=== PATIENT | female | born 1980 | race American Indian/Alaskan Native ===

== ENCOUNTER 2018-04-27 10:53 | Emergency (ER) | payer MEDICAID ==
[2018-04-27 11:20] VITALS: TEMP 98.7; O2SAT 100; BMI 38.2
--- NOTE | 2018-04-27 11:29 | ED PDOC ---
Arrival/HPI <Marissa Candelaria - Last Filed: 04/27/18 13:52> - General Historian: Patient <Marisa Martines - Last Filed: 04/27/18 18:02> - General Chief Complaint: Dizziness/Lightheaded Time Seen by Provider: 04/27/18 11:00 - History of Present Illness Narrative History of Present Illness (Text): 04/27/18 11:26 Patient is a 37 year old female with past medical history of rheumatoid arthritis, depression/anxiety, fibroids presents to the ED for dizziness that started this morning. Symptoms started at 10:30am and she is still dizzy. Patient states that she started her period on 04/23 and it has been irregular. She states that she passed a "big" blood clot on the first day the bleeding slowed down then she started bleeding again. Currently she is spotting. Reports having abdominal cramping x 1 week. Rates the pain 5-6/10 on pain scale. Has tried motrin for the pain with no relief. Admits to feeling nauseous but no vomiting. (Marisa Martines) Past Medical History <Marissa Candelaria - Last Filed: 04/27/18 13:52> - Provider Review Nursing Documentation Reviewed: Yes - Past History Past History: No Previous - Infectious Disease Hx of Infectious Diseases: None - Reproductive Menopause: No - Cardiac Hx Cardiac Disorders: No - Pulmonary Hx Respiratory Disorders: No - Neurological Hx Neurological Disorder: Yes Hx Dizziness: Yes - HEENT Hx HEENT Disorder: No - Renal Hx Renal Disorder: No - Endocrine/Metabolic Hx Endocrine Disorders: No - Hematological/Oncological Hx Blood Disorders: No - Integumentary Hx Dermatological Disorder: No - Musculoskeletal/Rheumatological Hx Musculoskeletal Disorders: Yes Hx Rheumatoid Arthritis: Yes - Gastrointestinal Hx Gastrointestinal Disorders: No - Genitourinary/Gynecological Hx Genitourinary Disorders: No - Psychiatric Hx Psychophysiologic Disorder: Yes Hx Anxiety: Yes Hx Depression: Yes Hx Substance Use: No - Surgical History Hx Section: Yes (x2) - Anesthesia Hx Anesthesia: Yes <Brooke Martinesm - Last Filed: 04/27/18 18:02> - Patient History Narrative Patient History: Rheumatoid arthritis, depression/anxiety (Marisa Martines) Family/Social History - Physician Review Nursing Documentation Reviewed: Yes Family/Social History: Diabetes Smoking Status: Heavy Smoker > 10 Cigarettes Daily Hx Alcohol Use: Yes Frequency of alcohol use: Socially Hx Substance Use: No <Marisa Martines - Last Filed: 04/27/18 18:02> Allergies/Home Meds <Marissa Candelaria - Last Filed: 04/27/18 13:52> <Marisa Martines - Last Filed: 04/27/18 18:02> Allergies/Adverse Reactions: Allergies amoxicillin Adverse Reaction (Verified 04/27/18 11:19) RASH Home Medications: Home Meds Medication Instructions Recorded Confirmed ALPRAZolam [Xanax] 0.25 mg PO Q6 PRN 04/27/18 04/27/18 Sertraline [Zoloft] 100 mg PO DAILY 04/27/18 04/27/18 Review of Systems - Review of Systems Constitutional: Fatigue, Weight Change. absent: Fevers, Night Sweats Eyes: Vision Changes ENT: absent: Hearing Changes Respiratory: absent: SOB, Cough, Wheezing Cardiovascular: absent: Chest Pain, Palpitations Gastrointestinal: Abdominal Pain, Nausea. absent: Diarrhea, Vomiting Genitourinary Female: absent: Dysuria, Frequency, Hematuria Neurological: Dizziness. absent: Headache <Marisa Martines - Last Filed: 04/27/18 18:02> Physical Exam Vital Signs Reviewed: Yes Temperature: Afebrile Blood Pressure: Normal Pulse: Regular Respiratory Rate: Normal Appearance: Positive for: Well-Appearing, Non-Toxic Pain Distress: Mild Mental Status: Positive for: Alert and Oriented X 3 - Systems Exam Head: Present: Atraumatic, Normocephalic Pupils: Present: PERRL Extroacular Muscles: Present: EOMI Conjunctiva: Present: Normal Mouth: Present: Moist Mucous Membranes Respiratory/Chest: Present: Clear to Auscultation, Good Air Exchange Cardiovascular: Present: Regular Rate and Rhythm, Normal S1, S2 Abdomen: Present: Tenderness (Suprapubic), Normal Bowel Sounds. No: Distention , Peritoneal Signs Upper Extremity: Present: Normal Inspection Lower Extremity: Present: Normal Inspection Neurological: Present: CN II-XII Intact, Speech Normal Skin: Present: Warm, Dry, Normal Color Psychiatric: Present: Alert, Oriented x 3 <Marisa Martines - Last Filed: 04/27/18 18:02> Vital Signs Temp Pulse Resp BP Pulse Ox 04/27/18 14:20 77 18 119/70 100 04/27/18 13:20 123/74 04/27/18 11:11 98.7 F 70 17 100 Medical Decision Making <Marissa Candelaria - Last Filed: 04/27/18 13:52> Re-evaluation Time: 12:57 Reassessment Condition: Re-examined, Improving,but remains with symptoms - Lab Interpretations I have reviewed the lab results: Yes - EKG Interpretation Interpreted by ED Physician: Yes Type: 12 lead EKG <Marisa Martines - Last Filed: 04/27/18 18:02> ED Course and Treatment: 04/27/18 In agreement with resident note, which includes further HPI details. Patient was seen and evaluated with resident, came up with plan and treatment together. (Marissa Candelaria) 04/27/18 12:57 --Labs (CBC,CMP, UA) --EKG --Toradol 30mg IVP x 1 (Marisa Martines) - Lab Interpretations Lab Results: 04/27/18 12:00 04/27/18 12:00 Lab Results 04/27/18 12:00: Sodium 140, Potassium 3.9, Chloride 102, Carbon Dioxide 25, Anion Gap 17, BUN 13, Creatinine 0.8, Est GFR ( Amer) > 60, Est GFR (Non- Af Amer) > 60, Random Glucose 93, Calcium 9.7, Total Bilirubin 0.4, AST 22, ALT 23, Alkaline Phosphatase 68, Total Protein 8.0, Albumin 4.7, Globulin 3.3, Albumin/Globulin Ratio 1.4 04/27/18 12:00: WBC 9.6, RBC 4.10, Hgb 12.9, Hct 37.7, MCV 92.0, MCH 31.5, MCHC 34.2, RDW 12.1, Plt Count 312, MPV 9.2, Gran % 68.3 H, Lymph % (Auto) 23.7, [place] % (Auto) 7.1 H, Eos % (Auto) 0.6 L, Baso % (Auto) 0.3, Gran # 6.52 H, Lymph # (Auto) 2.3, [place] # (Auto) 0.7 H, Eos # (Auto) 0.1, Baso # (Auto) 0.03 04/27/18 12:00: Urine Color Yellow, Urine Appearance Clear, Urine pH 6.0, Ur Specific [place] 1.020, Urine Protein Negative, Urine Glucose (UA) Negative, Urine Ketones Negative, Urine Blood Large H, Urine Nitrate Negative, Urine Bilirubin Negative, Urine Urobilinogen 0.2, Ur Leukocyte Esterase Negative, Urine RBC 20 - 25, Urine WBC 0 - 2, Ur Epithelial Cells 6 - 8, Urine Bacteria Mod - EKG Interpretation EKG Interpretation (Text): 04/27/18 13:00 Sinus bradycardia 59 bpm, no ST-T wave changes (Marisa Martines) - Medication Orders Current Medication Orders: Discontinued Medications Sodium Chloride (Sodium Chloride 0.9%) 500 mls @ 999 mls/hr IV .Q31M STA Stop: 04/27/18 13:35 Last Admin: 04/27/18 13:10 Dose: 999 mls/hr eMAR Start Stop Document 04/27/18 13:10 EQ (Rec: 04/27/18 13:11 EQ [id number]) Intravenous Solution Start Date 04/27/18 Start Time 13:11 Ketorolac Tromethamine (Toradol) 30 mg IVP STAT STA Stop: 04/27/18 11:30 Last Admin: 04/27/18 11:45 Dose: 30 mg MAR Pain Assessment Document 04/27/18 11:45 EQ (Rec: 04/27/18 11:45 EQ [id number]) Pain Reassessment Is this a pain reassessment? No Sleep Is patient sleeping during reassessment? No Presence of Pain Presence of Pain Yes IVP Administration Document 04/27/18 11:45 EQ (Rec: 04/27/18 11:45 EQ [id number]) Charges for Administration # of IVP Administrations 1 - PA / [employer] TECH / Resident Statement MD/DO has reviewed & agrees with the documentation as recorded. MD/DO has examined the patient and agrees with the treatment plan. - Scribe Statement The provider has reviewed the documentation as recorded by the Scribe <Marissa Candelaria - Last Filed: 04/27/18 13:52> <Marisa Martines - Last Filed: 04/27/18 18:02> - Scribe Statement Andressa Reyes Provider Scribe Attestation: All medical record entries made by the Scribe were at my direction and personally dictated by me. I have reviewed the chart and agree that the record accurately reflects my personal performance of the history, physical exam, medical decision making, and the department course for this patient. I have also personally directed, reviewed, and agree with the discharge instructions and disposition. (Marissa Candelaria) Disposition/Present on Arrival <Marissa Candelaria - Last Filed: 04/27/18 13:52> - Present on Arrival Any Indicators Present on Arrival: No History of DVT/PE: No History of Uncontrolled Diabetes: No Urinary Catheter: No History of Decub. Ulcer: No History Surgical Site Infection Following: None - Disposition Have Diagnosis and Disposition been Completed?: Yes Disposition Time: 13:51 <Marisa Martines - Last Filed: 04/27/18 18:02> - Disposition Diagnosis: Dizziness, Irregular bleeding Disposition: HOME/ ROUTINE Condition: STABLE Discharge Instructions (ExitCare): Absent or Irregular Periods, Dizziness, Nonvertigo, (DC) Additional Instructions: Please follow up with [facility] within 1 week Stay well hydrated and you can take Naproxen 500mg BID prn pain If having any worsening symptoms, return to nearest ED Prescriptions: Naproxen 500 mg PO BID PRN #10 tab PRN Reason: Pain, Moderate (4-7) Forms: [facility] (Polish)
[2018-04-27 12:22] LABS: URINE BILIRUBIN NEGATIVE (NEGATIVE); URINE BLOOD LARGE (NEGATIVE); URINE GLUCOSE (UA) NEGATIVE (NEGATIVE); URINE LEUKOCYTE ESTERASE NEGATIVE Leu/uL (NEGATIVE); URINE PROTEIN NEGATIVE mg/dL (<30 mg/dL); URINE UROBILINOGEN 0.2 E.U./dL (<1 E.U./dL)
[2018-04-27 12:24] LABS: URINE APPEARANCE CLEAR (CLEAR); URINE COLOR YELLOW (YELLOW)
[2018-04-27 12:28] LABS: BASO # 0.03 K/mm3 (0.0-2.0); BASO % 0.3 % (0.0-3.0); EOS # 0.1 (0.0-0.7); EOS % 0.6 % (1.5-5.0); GRAN # 6.52 (1.4-6.5); GRAN % 68.3 % (50.0-68.0); HEMOGLOBIN 12.9 g/dL (12.0-16.0); LYMPH # 2.3 (1.2-3.4); LYMPH % 23.7 % (22.0-35.0); MEAN CORPUSCULAR HEMOGLOBIN 31.5 pg (25.0-35.0); MEAN CORPUSCULAR HGB CONC 34.2 g/dl (31.0-37.0); MEAN PLATELET VOLUME 9.2 fl (7.0-11.0); MONO # 0.7 (0.1-0.6); MONO % 7.1 % (1.0-6.0); RBC 4.1 10^6/uL (3.5-6.1); RED CELL DISTRIBUTION WIDTH 12.1 % (11.5-14.5); WHITE BLOOD COUNT 9.6 10^3/ul (4.5-11.0)
[2018-04-27 12:29] LABS: URINE BACTERIA MOD (NEG); URINE RBC 20 - 25 /hpf (0-2); URINE WBC 0 - 2 /hpf (0-6)
[2018-04-27 12:34] LABS: ALB/GLOB RATIO 1.4 (1.1-1.8); ALBUMIN 4.7 g/dL (3.0-4.8); ALT/SGPT 23 U/L (7-56); AST/SGOT 22 U/L (14-36); BLOOD UREA NITROGEN 13 mg/dL (7-21); CALCIUM 9.7 mg/dL (8.4-10.5); GFR AFRICAN-AMERICAN > 60; GFR NON-AFRICAN AMERICAN > 60
[2018-04-27] MEDS ORDERED: Sodium Chloride 0.9% 500 ML IV STA (13:05)
[2018-04-27 14:22] VITALS: BP 119/70; PULSE 77; RESP 18
--- NOTE | 2018-04-27 16:13 | CARD ---
APPROVED REPORT Date of service: 04/27/2018 EKG Measurement Heart [id number] <Conclusion> Sinus bradycardia Otherwise normal ECG
== END 2018-04-27 14:20 | disposition home or self-care (01) ==
LOC: ED 10:53
DX: R42 Dizziness and giddiness (principal); N92.6 Irregular menstruation, unspecified; F17.210 Nicotine dependence, cigarettes, uncomplicated; M06.9 Rheumatoid arthritis, unspecified
CPT/HCPCS: 80053; 81001; 85025; 93005; 96374; 99285; J1885; J7040